=== PATIENT | female | born 1980 | race Caucasian/White ===

== ENCOUNTER → 2020-08-21 08:09 | Outpatient (CLI) | payer OTHER, SELFPAY ==
[2020-08-21 08:33] LABS: Add Manual Diff / Slide Review NO; Basophils Absolute Auto 0 /uL (0-100); Basophils Percent Auto 0.5 % (0-2); Eosinophils Absolute Auto 500 /uL (0-450); Eosinophils Percent Auto 5.8 % (2-4); Hematocrit 42.3 % (36-46); Hemoglobin 14.2 g/dL (12.0-16.0); Lymphocytes Absolute Auto 2300 /uL (1100-4500); Lymphocytes Percent Auto 28.6 % (25-40); Mean Corpuscular HGB Conc 33.7 % (30-36); Mean Corpuscular Hemoglobin 28.8 PG (26-34); Mean Corpuscular Volume 85.7 fL (80-100); Monocytes Absolute Auto 400 /uL (0-900); Monocytes Percent Auto 5.3 % (3-14); Neutrophils Absolute Auto 4700 /uL (1500-7000); Neutrophils Percent Auto 59.8 % (50-75); Platelet Count 337 X10^3/uL (150-400); Red Blood Cell Count 4.93 X10^6/uL (4.0-5.2); Red Cell Distribution Width 13.3 % (11.6-14.8); White Blood Cell Count 7.9 X10^3/uL (4.5-11.0)
[2020-08-21 09:13] LABS: Alanine Aminotransferase 25 IU/L (<35); Albumin 4.2 g/dL (3.5-5.0); Albumin Globulin Ratio 1.6 (1.0-2.8); Alkaline Phosphatase 63 U/L (38-126); Aspartate Aminotransferase 18 IU/L (14-36); Bilirubin Total 0.5 mg/dL (0.2-1.3); Blood Urea Nitrogen 12 mg/dL (7-17); Calcium 9.3 mg/dL (8.4-10.2); Carbon Dioxide 29 mmol/L (22-32); Chloride 105 mmol/L (98-107); Cholesterol 193 mg/dL (140-199); Estimated Glomerular Filt Rate > 60.0 mL/min (>60); Globulin 2.6 g/dL (1.7-4.1); Glucose 103 mg/dL (70-100); HDL Cholesterol 49 mg/dL (40-60); HEMOLYSIS < 15 (0-50); LDL Cholesterol Calculated 119 mg/dL (<100); Potassium 4.3 mmol/L (3.4-5.1); Sodium 139 mmol/L (137-145); Total Protein 6.8 g/dL (6.3-8.2); Triglycerides 123 mg/dL (35-150)
== END ==
PROVIDERS: PCP Registered Nurse; Referring Provider Registered Nurse; Visit Provider Registered Nurse
DX: I49.9 Cardiac arrhythmia, unspecified (principal); Z82.49 Family history of ischemic heart disease and other diseases of the circulatory system; G43.909 Migraine, unspecified, not intractable, without status migrainosus
CPT/HCPCS: 36415; 80053; 80061; 85025

== ENCOUNTER 2021-07-01 12:11 | Emergency (ER) | payer OTHER, SELFPAY ==
[2021-07-01 12:19] VITALS: BP 147/72; PULSE 89; RESP 18; TEMP 37.2; O2SAT 100; BMI 33.4
--- NOTE | 2021-07-01 14:01 | ED.NECK ---
HPI - Neck Pain/Injury General Chief Complaint: Neck Pain/Injury Stated Complaint: Neck Pain/Left Side, Family HX Blood Clots/Stroke Time Seen by Provider: 07/01/21 14:01 Source: patient Mode of arrival: Ambulatory Limitations: no limitations History of Present Illness HPI Narrative: This is a 41-year-old female who comes to the emergency department with complaint of left-sided neck discomfort she states seems to be the low sort of lateral across her neck. There is some mild sore spots that appear irritated although she can not feel a clear lump or bump. She states it started morning and has continued. She denies any other symptoms. Movement does seem to irritated a little bit. No fevers or chills. No ear pain. Patient has not had any sore throat. She denies any redness, warmth or obvious swelling. She has not had any changes to her voice, difficulty swallowing or sensation of pressure in her throat or neck. She denies any chest pain or shortness of breath. She has occasional palpitations and has a history of SVT. She does not take any medications for it. She used to take atenolol remotely but was not requiring it. Does history cholecystectomy. She is allergic to Percocet. She does not use any tobacco, alcohol or illicit. She has a family history of blood clots in her mom and brother. Dad has had a stroke. Related Data Home Medications Medication Instructions Recorded Confirmed No Known Home Medications 08/15/20 08/15/20 Allergies Allergy/AdvReac Type Severity Reaction Status Date / Time oxycodone AdvReac ITCHING Verified 07/01/21 12:23 Review of Systems Review of Systems ROS Unobtainable: All systems reviewed & are unremarkable except as noted in HPI and below Patient History Social History Smoking Status: Never smoker Smoking Status: Never smoker alcohol intake frequency: holidays/special occasions only Substance Use Type: does not use Exam Narrative Exam Narrative: GEN: well nourished, well appearing female, alert and oriented x 3, patient appears to be in mild distress. HEENT: Atraumatic, pupils are equal round reactive to light, extraocular movements are intact, nares are clear, TMs are clear with no fluid, there is no conjunctival pallor. Throat is clear without any exudates, erythema, tonsillar enlargement or uvular deviation, patient has some mild anterior cervical chain lymphadenopathy although very mild. Nodes are very mildly tender, mobile and without fluctuance. There is no swelling of the neck. There is no warmth, erythema other skin changes. Do not appreciate any hoarseness or voice changes. She does not have any thyromegaly on exam. HEART: Regular rate and rhythm without murmur, clicks, rubs. LUNGS:Lungs clear to auscultation, no wheezes, rales, crackles, chest moves symmetrically ABD:bowel sounds normal, soft, non-tender, no guarding, rebound, rigidity, no masses noted, no hepatosplenomegaly :No CVA tenderness MSCL: Non-tender, full range of motion, normal gait NEURO:CN 2-12 intact, sensation normal SKIN: No rash, erythema or other skin changes noted. Initial Vital Signs Initial Vital Signs: Vital Signs Temperature 99.0 F 07/01/21 12:19 Pulse Rate 89 07/01/21 12:19 Respiratory Rate 18 07/01/21 12:19 Blood Pressure 147/72 H 07/01/21 12:19 Pulse Oximetry 100 07/01/21 12:19 Course Orders Ordered: ED Orders 07/01/21 12:24 EKG-12 Lead Stat Vital Signs Vital signs: Vital Signs - 8 hr 07/01/21 12:19 07/01/21 16:11 Temperature 99.0 F Pulse Rate 89 77 Respiratory Rate 18 Blood Pressure 147/72 H 134/81 Pulse Oximetry 100 98 [facility] - Neck Pain/Injury ECG Data Attestation: I personally reviewed and interpreted this ECG as follows: Prior ECG tracings: not available for review Interpretation: Sinus rhythm rate 83 AZ 136 QRS 88 QTC 441[address] No acute [address] changes appreciated. No priors for comparison. [facility] Narrative Medical decision making narrative: This is a 41-year-old female who has some small lymph nodes on the left side of her neck when palpated but no other changes. Plan for watchful waiting. Patient's exam is otherwise reassuring. Discussed return precautions. Discharge Plan Departure Patient Disposition: Home Clinical Impression: Enlarged lymph node in neck Activity Restrictions/Additional Instructions: You have slightly enlarged lymph node on exam. It is mildly so I would just continue to monitor at this time. If it does not resolve over the next 2 weeks or your having slowly worsening symptoms please follow-up with your primary care. You may take Tylenol and/or ibuprofen as needed for pain. Please return for rapidly worsening swelling, redness or warmth, increasing pain, difficulty swallowing, breathing or change to voice or other new or concerning symptoms. Prescriptions: No Action No Known Home Medications 0RF Referrals: Elizabeth Palacios ARNP [Primary Care Provider] -
[2021-07-01 16:11] VITALS: BP 134/81; PULSE 77; O2SAT 98
--- NOTE | 2021-07-01 16:31 | PC.NURSE ---
pt describes pain in rt front of neck.
== END 2021-07-01 16:30 | disposition home or self-care (01) ==
PROVIDERS: Emergency Provider Emergency Medicine; PCP Registered Nurse
DX: R59.0 Localized enlarged lymph nodes (principal)
CPT/HCPCS: 93005; 99281; 99283

== ENCOUNTER → 2025-02-03 08:28 | Outpatient (CLI) | payer OTHER, SELFPAY ==
[2025-02-03 10:08] LABS: Add Manual Diff / Slide Review NO; Hematocrit 43.6 % (36-46); Hemoglobin 14.7 g/dL (12.0-16.0); Lymphocytes Absolute Auto 2300 /uL (1100-4500); Mean Corpuscular HGB Conc 33.8 % (30-36); Mean Corpuscular Hemoglobin 28.4 PG (26-34); Mean Corpuscular Volume 84.1 fL (80-100); Platelet Count 362 X10^3/uL (150-400)
[2025-02-03 10:15] LABS: Hemoglobin A1C% w Est Avg Glu 5.8 % (4.0-6.0)
[2025-02-03 10:28] LABS: Alanine Aminotransferase 19 IU/L (<35); Albumin 4.3 g/dL (3.5-5.0); Albumin Globulin Ratio 1.6 (1.0-2.8); Alkaline Phosphatase 69 U/L (38-126); Blood Urea Nitrogen 11 mg/dL (7-17); Calcium 9.3 mg/dL (8.4-10.2); Carbon Dioxide 20 mmol/L (22-32); Chloride 107 mmol/L (98-107); Cholesterol 208 mg/dL (140-199); Estimated Glomerular Filt Rate > 60 mL/min (>60); Globulin 2.7 g/dL (1.7-4.1); Glucose 110 mg/dL (70-99); HDL Cholesterol 48 mg/dL (40-60); HEMOLYSIS < 15 (0-50); Potassium 4.5 mmol/L (3.4-5.1); Sodium 138 mmol/L (137-145); Total Protein 7.0 g/dL (6.3-8.2); Triglycerides 125 mg/dL (35-150)
[2025-02-03 10:57] LABS: Cortisol AM (Before 10AM) 15.1 ug/dL (4.46-22.7)
[2025-02-03 11:03] LABS: TSH w/ Reflex to FT4 1.24 uIU/mL (0.47-4.68)
[2025-02-03 11:47] LABS: Follicle Stimulating Hormone 4.60 mIU/mL
== END ==
PROVIDERS: PCP Family Medicine; Referring Provider Family Medicine; Visit Provider Family Medicine
DX: I49.9 Cardiac arrhythmia, unspecified (principal); E66.9 Obesity, unspecified; R63.5 Abnormal weight gain; Z82.49 Family history of ischemic heart disease and other diseases of the circulatory system
CPT/HCPCS: 36415; 80053; 80061; 82533; 83001; 83036; 84146; 84443; 85025

== ENCOUNTER → 2025-03-02 14:51 | Outpatient (CLI) | payer OTHER, SELFPAY ==
--- NOTE | 2025-03-02 17:22 | DI.ECHO.S_ITS ---
[facility] : : [address] : : [place] : : [id number] : : Phone: [phone] Echocardiogram Report + + :Name: SEDA MONAE Study Date: 03/02/2025 Height: 68 in : :Hospital ReadingLocation: Weight: 240 lb : : Gender: Female BSA: 2.2 m2 : :: 1980 Age: 44 yrs BP: 143/104 mmHg: :Reason For Study: PALPITATIONS : :Ordering Physician: MANSI, : :MARLI Moscoso Performed By: Luis Alfredo Dash : :Referring: MARLI NAZARIO : + + Interpretation Summary 1) Normal left ventricular thickness and size with low normal systolic function (EF 50-55%). 2) Normal right ventricular size and function. 3) No significant valvular abnormalities. 4) No prior Echo available for comparison. Procedure: A two-dimensional transthoracic echocardiogram with color flow and Doppler was performed. The study quality was technically good. There is no prior echocardiogram noted for this patient. The patient was in normal sinus rhythm during the exam. Left Ventricle: The left ventricle is normal in size. There is normal left ventricular wall thickness. There is no ventricular septal defect visualized. The ejection fraction is estimated to be 50-55%. There are no focal wall motion abnormalities. Diastolic parameters suggest probable normal left ventricular diastolic function and normal filling pressures. Right Ventricle: The right ventricle is normal in size and function. Atria: The left atrial size is normal. Right atrial size is normal. There is no Doppler evidence for an interatrial shunt. Mitral Valve: The mitral valve leaflets are mildly calcified. There is trace mitral regurgitation. Aortic Valve: The aortic valve is trileaflet. The aortic valve opens well. There is no aortic valve stenosis. No aortic regurgitation is present. Tricuspid Valve: The tricuspid valve leaflets are thin and pliable. No tricuspid regurgitation. Pulmonic Valve: The pulmonic valve is not well seen, but is grossly normal. There is no pulmonic valvular regurgitation. Great Vessels: The aortic root is normal size. The dimensions of the ascending aorta are normal. The pulmonary artery is normal size. The IVC is of normal diameter and collapses greater than 50% with a sniff. This suggests a low right atrial pressure of 3 mm Hg. Pericardium/ Pleura There is no pericardial effusion. There is no pleural effusion. MMode/2D Measurements & Calculations LVIDd: 4.7 cm LVOT diam: 1.9 cm LVIDs: 3.0 cm Ao root diam: 3.1 cm FS: 35.5 % asc Aorta Diam: 3.0 cm EPSS: 0.95 cm Ao Arch Diam (Prox Trans): 1.5 cm IVSd: 0.97 cm LVPWd: 1.1 cm LV sahu. diameter/BSA (cm/m^2): 2.1 LV sys. diameter/BSA (cm/m^2): 1.4 LA A2 area: 17.5 cm2 RA long axis: 4.6 cm LA A4 area: 16.2 cm2 RA area: 10.3 cm2 LA length (vol): 5.0 cm RA vol: 19.6 ml LA vol: 48.2 ml RA : 8.9 ml/m2 LA vol index: 21.8 ml/m2 IVC diam: 0.91 cm RVD1 (basal): 3.0 cm RVD2 (mid): 2.9 cm TAPSE: 2.0 cm Doppler Measurements & Calculations Ao V2 max: 133.7 cm/sec LVOT Max Jean-Paul: 106.6 cm/sec Ao V2 mean: 98.3 cm/sec LV V1 max P.5 mmHg Ao max P.1 mmHg LV V1 VTI: 20.5 cm Ao mean P.2 mmHg KASIA(I,D): 2.4 cm2 Ao V2 VTI: 24.7 cm KASIA(V,D): 2.3 cm2 sev ratio: 0.83 KASIA indexed to BSA (cm^2/m^2): 1.1 MV E max jean-paul: 72.3 cm/sec PA V2 max: 114.3 cm/sec MV A max jean-paul: 50.8 cm/sec PA V2 mean: 80.1 cm/sec MV E/A: 1.4 PA mean P.8 mmHg Med Peak E' Jean-Paul: 11.0 cm/sec PA pr(Accel): 43.0 mmHg E/E' med: 6.6 Lat Peak E' Jean-Paul: 10.3 cm/sec E/E' lat: 7.0 E/e' average: 6.8 MV dec time: 0.14 sec SV(LVOT): 59.0 ml Reading Physician:10:42 AM
== END ==
PROVIDERS: PCP Family Medicine; Referring Provider Family Medicine; Visit Provider Family Medicine
DX: I49.9 Cardiac arrhythmia, unspecified (principal)
CPT/HCPCS: 93306

== ENCOUNTER → 2025-05-11 15:22 | Outpatient (CLI) | payer OTHER, SELFPAY ==
--- NOTE | 2025-05-23 14:07 | DIET.OUTPTC ---
Dietary Outpatient Consult Consult Date:05/11/25 Assessment:?45 y F referred to dietitian for prediabetes Pt reports working to incorporate more fiber and reduce CHO. Cooking more at home or eating half of rice/starch portion when out to eat. See diet recall for changes. Hasn't experienced any weight changes yet. Diet Recall: B-eggs, 1 chk sausage, 1 piece whole wheat toast, 1/4 avocado; coffee with sugar free caramel syrup [id number] with 1 tbsp dressing and with chk OR cottage cheese and turkey and GF crackers and almonds 430 pm- lean meats, farro mixed with bone broth, broccoli/green beans or summer squash; [employer] gets totally tuna 1 unreal piece chocolate pb or a couple dark chocolate almonds 04/29/2509:59 Height 5 ft 8 in Weight 247 lb 8 oz BMI 37.6 Activity:walking trails/beach, elliptical Pertinent Labs:5.8% A1c, 208 TC, 135 LDL - labs 02/03/25 Nutrition Diagnosis:? (improved) Food and nutrition related knowledge deficit r/t needing guidance on dietary adjustments aeb pt wanting to learn more about nutrition changes with preDM Interventions:? Discussed and provided appropriate resources on the following: -Addressed questions on what to get at [employer] by reviewing online nutrition facts for totally tuna sandwich -Discussed physical activity to increase energy expenditure -Discussed 1-2 days of calorie counting using sherman to assess current intake Goals: New: -1/4 less of the bread on [employer] sandwich to be within CHO range -+2k steps daily -1 day resistance workout -1-2 days counting calories to assess if within EER Met: -Using CHO counting sheet aim for 30-45 g CHO at lunch and dinner -Aim for 1-2 more at home meals or half of CHO choice when out to eat -Increase fiber with 1-2 more cups of vegs/fruit daily, change bread to whole wheat -Eliminate regular soda EER:? 30-45 g CHO at meals, 15 g CHO at snacks; MSJ is [id number] re-eval based on PA changes Monitoring/Evaluations:? F/u in 6 wks Electronically Signed by: Tri Marte Clinical Dietitian [address] [id number]
== END ==
PROVIDERS: PCP Family Medicine; Referring Provider Family Medicine
DX: R73.03 Prediabetes (principal); Z71.3 Dietary counseling and surveillance
CPT/HCPCS: 97803